=== PATIENT | male | born 1995 | race Caucasian/White ===

== ENCOUNTER 2016-11-28 21:45 | Emergency (ER) | payer BC ==
[2016-11-28 22:02] VITALS: RESP 16
--- NOTE | 2016-11-28 22:19 | EDPHY ---
H & P Stated Complaint: ST, n/v HPI/ROS: HPI CHIEF COMPLAINT: Sore throat HISTORY OF PRESENT ILLNESS: The patient very pleasant 21-year-old male denies any significant medical history does not take any daily medications presents emergency room with sore throat times 48 hours progressively getting worse. I rapid strep done by [facility] clinic told was negative. Presents emergency room with chills, sore throat. Dry cough. Denies headache, neck pain , diarrhea abdominal pain chest pain or shortness of breath. Does have nausea. Past Medical History: N oMedical history Past Surgical History: No surgical history Social History: Denies daily use of drugs alcohol tobacco products Family History: Noncontributory ROS REVIEW OF SYSTEMS: A comprehensive 10 point review of systems is otherwise negative aside from elements mentioned in the history of present illness. Exam Constitutional triage nursing summary reviewed, vital signs reviewed, awake/ alert. Eyes normal conjunctivae and sclera, EOMI, PERRLA. HENT posterior pharynx erythematous, uvula midline, no exudate, no asymmetrical swelling, no signs of [employer] RPA, no signs of Abbe's, normal inspection, atraumatic, moist mucus membranes, no epistaxis, neck supple/ no meningismus, no raccoon eyes. Respiratory clear to auscultation bilaterally, normal breath sounds, no respiratory distress, no wheezing. Cardiovascular rate normal, regular rhythm, no murmur, no edema, distal pulses normal. Gastrointestinal no splenomegaly on exam, soft, non-tender, no rebound, no guarding, normal bowel sounds, no distension, no pulsatile mass. Genitourinary no CVA tenderness. Musculoskeletal no midline vertebral tenderness, full range of motion, no calf swelling, no tenderness of extremities, no meningismus, good pulses, neurovascularly intact. Skin pink, warm, & dry, no rash, skin atraumatic. Neurologic awake, alert and oriented x 3, AAOx3, moves all 4 extremities equally, motor intact, sensory intact, CN II-XII intact, normal cerebellar, normal vision, normal speech. Psychiatric normal mood/affect. Heme/Lymph/Immune no lymphadenopathy. Differential Diagnosis: Includes but is not limited to in a particular order viral pharyngitis, strep pharyngitis, mono Medical Decision Making: Plan for this patient rapid strep, ibuprofen 800 mg, Decadron 4 mg. Re-evaluation: Given the way his throat looks severe erythema, no exudate I will empirically treat for strep. Azithromycin. Source: Patient - Personal History Current Tetanus/Diphtheria Vaccine: Yes Current Tetanus Diphtheria and Acellular Pertussis (TDAP): Yes - Medical/Surgical History Hx Asthma: No Hx Chronic Respiratory Disease: No Hx Diabetes: No Hx Cardiac Disease: No Hx Renal Disease: No Hx Cirrhosis: No Hx Alcoholism: No Hx HIV/AIDS: No Hx Splenectomy or Spleen Trauma: No Other PMH: L middle finger fx, - Social History Smoking Status: Never smoked Constitutional: Initial Vital Signs Temperature (C) 37.3 C 11/28/16 22:01 Heart Rate 71 11/28/16 22:01 Respiratory Rate 16 11/28/16 22:01 Blood Pressure 129/67 H 11/28/16 22:01 O2 Sat (%) 94 11/28/16 22:01 O2 Delivery Mode Room Air Allergies/Adverse Reactions: No Known Allergies Allergy (Unverified 11/28/16 22:00) Home Medications: Medication Instructions Recorded AZITHROMYCIN [Z-PACK] 250 mg PO DAILY #6 tab 11/28/16 Dexamethasone [Decadron 4 MG (*)] 4 mg PO DAILY #4 tab 11/28/16 Guaifenesin [Guaifenesin ER] 600 mg PO BID #14 tab.er.12h 11/28/16 Ibuprofen [Motrin (*)] 800 mg PO Q6-8PRN #7 tab 11/28/16 Departure - Departure Disposition: Home, Routine, Self-Care Clinical Impression: Pharyngitis Qualifiers: Pharyngitis/tonsillitis etiology: unspecified etiology Qualified Code(s): J02.9 - Acute pharyngitis, unspecified Instructions: Pharyngitis (ED) Additional Instructions: 1. Drink lots of fluids stay well-hydrated. 2. return emergency room if worsening symptoms questions or concerns Referrals: NONE *PRIMARY CARE P,. [Primary Care Provider] - As per Instructions Prescriptions: AZITHROMYCIN [Z-PACK] 250 mg PO DAILY #6 tab Dexamethasone [Decadron 4 MG (*)] 4 mg PO DAILY #4 tab Guaifenesin [Guaifenesin ER] 600 mg PO BID #14 tab.er.12h Ibuprofen [Motrin (*)] 800 mg PO Q6-8PRN #7 tab
[2016-11-28] MEDS ORDERED: DEXAMETHASONE 4 MG TAB PO ONE (22:23)
[2016-11-28] MEDS ORDERED: IBUPROFEN 200 MG TAB PO ONE (22:23)
[2016-11-28] MEDS ORDERED: AZITHROMYCIN 250 MG TAB PO ONE (22:25)
[2016-11-29 00:01] VITALS: BP 125/74; PULSE 70; TEMP 98.6; O2SAT 95
== END 2016-11-28 23:59 | disposition home or self-care (01) ==
DX: J02.9 Acute pharyngitis, unspecified (principal)